=== PATIENT | male | born 1955 ===

== ENCOUNTER 2020-07-18 23:23 | Emergency (ER) | payer OTHER | END 2020-07-18 23:58 | disposition home or self-care (01) | LOC: BURERS 23:23 | DX: S46.312A Strain of muscle, fascia and tendon of triceps, left arm, initial encounter (principal); I10 Essential (primary) hypertension; Y99.0 Civilian activity done for income or pay; Z79.899 Other long term (current) drug therapy; Z79.82 Long term (current) use of aspirin | CPT/HCPCS: 99283 ==